=== PATIENT | male | born 1955 | race Caucasian/White ===

== ENCOUNTER → 2016-12-14 | Outpatient (CLI) | payer BC | END | disposition home or self-care (01) | LOC: C.LABSPEC 14:27 | PROVIDERS: ATTEND Family Medicine | DX: N39.0 Urinary tract infection, site not specified (principal) ==

== ENCOUNTER → 2017-01-13 | Outpatient (CLI) | payer BC ==
--- NOTE | 2017-01-13 09:45 | DIAGNOSTIC IMAGING REPORT ---
(TESTICULAR) SCROTUM-CONT CLINICAL HISTORY: TESTICULAR PAIN COMPARISON STUDY: No previous studies for comparison. FINDINGS: The right testis measures 41 x 29 x 23 mm. The left testis measures 41 x 29 x 24 mm. There is a 5 mm relatively anechoic focus within the upper pole the left testis. This likely represents a cyst. A 6 month follow-up study is recommended. There is no evidence of testicular torsion. There is a 15 mm left-sided epididymal cyst. There is a small left-sided hydrocele. There is a 4 mm left-sided scrotolith IMPRESSION: 1. No evidence of testicular torsion 2. 15 mm left-sided epididymal cyst 3. 4 mm left-sided scrotolith 4. 5 mm left-sided intratesticular mass, likely representing a cyst. A 6 month follow-up is recommended 5. Small left-sided hydrocele Electronically signed by: Jerome Deng M.D. 01/13/2017 9:43 AM Dictated Date/Time: 01/13/2017 9:40 AM
== END | disposition home or self-care (01) ==
LOC: C.ULTRBC 08:37
PROVIDERS: ATTEND Family Medicine
DX: N50.819 Testicular pain, unspecified (principal); N50.3 Cyst of epididymis; N43.3 Hydrocele, unspecified

== ENCOUNTER → 2017-12-25 | Outpatient (CLI) | payer OTHER ==
[~2017-12-25] MED LIST: MULT-506 PO; OXYC-57 PO
--- NOTE | 2017-12-25 13:57 | DIAGNOSTIC IMAGING REPORT ---
CHEST 2 VIEWS ROUTINE CLINICAL HISTORY: 62 years-old Male presenting with K40.90 Inguinal hernia, right Pre-op. TECHNIQUE: PA and lateral views of the chest were obtained. COMPARISON: 01/12/2009. FINDINGS: Cardiomediastinal silhouette normal. Lungs and pleural spaces clear. Osseous structures normal. Upper abdomen normal. IMPRESSION: 1. No acute cardiopulmonary disease. Electronically signed by: Javier Hagan M.D. 12/25/2017 1:55 PM Dictated Date/Time: 12/25/2017 1:54 PM
[2017-12-25 14:38] LABS: BASO % 0.6 %; BASO ABS # 0.04 K/uL (0-0.2); EOS % 1.1 %; EOS ABS # 0.08 K/uL (0-0.5); HEMATOCRIT 44.4 % (42-52); HEMOGLOBIN 15.1 g/dL (14.0-18.0); IG# 0.01 K/uL (0.00-0.02); LYMPH % 27.8 %; LYMPH ABS # 2.01 K/uL (1.2-3.4); MEAN CELL VOLUME 92.5 fL (80-100); MEAN CORPUSCULAR HEMOGLOBIN 31.5 pg (25-34); MEAN PLATELET VOLUME 10.2 fL (7.4-10.4); MONO % 6.1 %; MONO ABS # 0.44 K/uL (0.11-0.59); NEUT % 64.3 %; NEUT ABS # 4.65 K/uL (1.4-6.5); PLATELET COUNT 228 K/uL (130-400); RED CELL DISTRIBUTION WIDTH CV 12.4 % (11.5-14.5); RED CELL DISTRIBUTION WIDTH SD 42.1 fL (36.4-46.3); WHITE BLOOD COUNT 7.23 K/uL (4.8-10.8)
[2017-12-25 15:23] LABS: BLOOD UREA NITROGEN 18 mg/dl (7-18); CALCIUM 9.3 mg/dl (8.5-10.1); CARBON DIOXIDE 28 mmol/L (21-32); GLUCOSE 96 mg/dl (70-99); POTASSIUM 3.7 mmol/L (3.5-5.1); SODIUM 140 mmol/L (136-145)
== END | disposition home or self-care (01) ==
LOC: C.RAD 13:08
PROVIDERS: ATTEND Surgery
DX: K40.90 Unilateral inguinal hernia, without obstruction or gangrene, not specified as recurrent (principal)

== ENCOUNTER 2017-12-28 04:56 | Day surgery (SDC) | payer OTHER ==
[2017-12-26 14:40] VITALS: BMI 29.0
[~2017-12-28] VITALS: Ht 182.9 cm; Wt 96.4 kg
[~2017-12-28 04:56] MED LIST changes: -OXYC-57 PO
[2017-12-28 05:25] VITALS: BP 166/83; PULSE 72; TEMP 36.6; O2SAT 97; Ht 182.9 cm; Wt 96.4 kg
[2017-12-28] MEDS ORDERED: LACTATED RINGER'S 1000ML 1,000 ML IV SCH (06:00)
--- NOTE | 2017-12-28 06:19 | History & Physical Bridge Note ---
H&P Re-Evaluation Bridge Note: I have examined the patient, reviewed the History & Physical and in the interval since the performance of the History & Physical I have noted the following changes of clinical significance: No changes noted pt marked, to be here later all questions answered
[2017-12-28] MEDS ORDERED: BACITRACIN 50000 UNIT VIAL ONE (06:39)
[2017-12-28] MEDS ORDERED: BUPIVACAINE 0.5 % 5 MG/1 ML MPF 30ML VIAL ONE (06:39)
[2017-12-28] MEDS ORDERED: FENTANYL CITRATE INJ 50 MCG/1 ML 2 ML VIAL ONE ×2 (06:42→07:12)
[2017-12-28] MEDS ORDERED: ONDANSETRON INJ 2 MG/ML 2 ML VIAL ONE (06:42)
[2017-12-28] MEDS ORDERED: DEXAMETHASONE SOD INJ 4 MG/ML VIAL ONE (06:42)
[2017-12-28] MEDS ORDERED: LIDOCAINE HCL 2% 2 ML VIAL (20MG/ML) ONE (06:42)
[2017-12-28] MEDS ORDERED: PROPOFOL IV EMULSION 10 MG/ML 20 ML VIAL IV ONE ×2 (06:42→07:21)
[2017-12-28] MEDS ORDERED: MIDAZOLAM HCL 1 MG/ML 2ML VIAL ONE (06:42)
[2017-12-28] MEDS ORDERED: CEFAZOLIN SOD 1 GM VIAL ONE (07:04)
[2017-12-28] MEDS ORDERED: KETOROLAC TROMETHAMINE 30 MG/ML VIAL ONE (07:59)
--- NOTE | 2017-12-28 08:10 | [facility] Post Operative Brief Note ---
Immediate Operative Summary Operative Date Dec 28, 2017. Pre-Operative Diagnosis Right inguinal hernia Post-Operative Diagnosis RIGHT DIRECT HERNIA AND LIPOMA CORD Procedure(s) Performed OPEN RIGHT DIRECT ING HERNIA REPAIR WITH MARLEX MESH Surgeon Dr Alvarado Brake Repairer Surgeon(s) Molly Baker PA-C Estimated Blood Loss 3CC Findings See Below PREOP Specimens NONE
[2017-12-28] MEDS ORDERED: FENTANYL CITRATE INJ 50 MCG/1 ML 2 ML VIAL IV PRN (08:15)
[2017-12-28] MEDS ORDERED: HYDROmorphone INJ 1 MG/ML SYR IV PRN (08:15)
[2017-12-28] MEDS ORDERED: MEPERIDINE HCL 25 MG/ML CARP IV PRN (08:15)
[2017-12-28] MEDS ORDERED: ONDANSETRON INJ 2 MG/ML 2 ML VIAL IV PRN ×2 (08:15→08:30)
[2017-12-28] MEDS ORDERED: LABETALOL HCL IV 5 MG/ML 20ML IV PRN (08:15)
[2017-12-28] MEDS ORDERED: ATROPINE SULFATE 0.1 MG/ML 5ML SYR IV PRN (08:15)
[2017-12-28] MEDS ORDERED: EpHEDrine SULFATE INJ 50 MG/ML AMP IV PRN (08:15)
[2017-12-28] MEDS ORDERED: SODIUM CHLORIDE 0.9% 1000ML 1,000 ML IV SCH (08:21)
[2017-12-28] MEDS ORDERED: OXYC-57 PO (08:22)
--- NOTE | 2017-12-28 08:28 | Discharge Instructions ---
Discharge Instructions Date of Service Dec 28, 2017. Admission Reason for Admission: Right Inguinal Hernia Discharge Discharge Diagnosis / Problem: Right Inguinal Hernia Discharge Goals Goal(s): Decrease discomfort, Improve function Activity Recommendations Activity Limitations: as noted below Lifting Limitations: no more than 10 pounds Exercise/Sports Limitations: until after follow-up appointment May Resume Sexual Activity: after follow-up appointment Shower/Bathe: tomorrow Driving or Machine Use: resume 3 days after discharge . Instructions / Follow-Up Instructions / Follow-Up Please follow-up with Dr. Alvarado in the General Surgery Clinic in 1-2 weeks. Please call the office at [phone] to make an appointment if you do not have one already. Please call the office with any questions or concerns. Current Hospital Diet Patient's current hospital diet: Discharge Diet Recommended Diet: Regular Diet Procedures Procedures Performed: OPEN RIGHT DIRECT ING HERNIA REPAIR WITH MARLEX MESH Pending Studies Studies pending at discharge: no Medical Emergencies . Who to Call and When: Medical Emergencies: If at any time you feel your situation is an emergency, please call 911 immediately. . Non-Emergent Contact Non-Emergency issues call your: Primary Care Provider, Surgeon Call Non-Emergent contact if: temperature is above 101.5, your pain is not controlled, wound has increased drainage, wound has increased redness . "Provider Documentation" section prepared by Molly Baker. . [place] Drug Monitoring Program Search Results: patient reviewed within database, no issues identified
[2017-12-28] MEDS ORDERED: OXYCODONE/ACETAMINOPHEN 5-325 TAB PO PRN ×2 (08:30)
--- NOTE | 2017-12-28 09:04 | OPERATIVE REPORT ---
DATE OF OPERATION: 12/28/2017 SURGEON: Matthew Alvarado MD. TELEVISION MAINTENANCE WORKER: Molly Baker PA-C. PREOPERATIVE DIAGNOSIS: Right inguinal hernia. POSTOPERATIVE DIAGNOSIS: Right direct inguinal hernia and lipoma of the cord. PROCEDURE: Open right direct inguinal hernia repair with Marlex mesh reinforcement. SUMMARY: The patient was brought into the operating room theater. Under general anesthetic, the right lower quadrant prepped with Betadine scrubbing solution and properly draped. We used 0.5% Marcaine without epinephrine to infiltrate 2 fingers medial to the anterior superior iliac crest subfascially external oblique. An incision was made parallel to the inguinal ligament, deepened through subcutaneous tissue onto the external oblique. Some larger venous plexus for and subQ were ligated with 2-0 silk. We took down to the external oblique fascia where we exposed the external ring. More local was used underneath the external oblique and incised. Hemostats were used to elevate, the fascia was opened to the external ring. The nerve identified and avoided, placed underneath hemostats and retracted inferiorly. The cord and its structures were then elevated over a [place] drain, was identified. The patient had a direct hernia that we were able then to free up from the cord structure and also patient and a large lipoma coming down into the internal ring area. We did not resect this, I was able to reduce that all into the retroperitoneal area. We then closed the internal ring with 3-0 interrupted silk sutures. We also similarly closed some of the transversalis fascia onto the direct area to get it out of the way with 3-0 silk suture. A piece of Marlex was brought into the field and sutured onto the symphysis pubis, shelving portion of inguinal ligament above the conjoined tendon all the way beyond the internal ring which was reconstructed, could only accommodate the tip of a hemostat. The fascia was then checked for hemostasis. The nerve had been placed along the cord prior to closing the internal ring. The more local was used on the conjoined tendon with 0.5% Marcaine. The external oblique was closed on top of the cord and the mesh with 3-0 interrupted silk suture, 2-0 Dexon, pooja for skin edges. Dressing was applied. The procedure was tolerated well by the patient. Estimated blood loss approximately 3 mL. The patient was taken to recovery room in good condition. I attest to the content of the Intraoperative Record and any orders documented therein. Any exception s are noted below.
[2017-12-28 09:10] VITALS: BP 121/69; PULSE 60; TEMP 36.4; O2SAT 93
--- NOTE | 2017-12-28 09:19 | Anesthesiology Progress Note ---
Anesthesia Post Op Note Date & Time Dec 28, 2017 at 09:19 Vital Signs Pain Intensity: 4 Vital Signs Past 12 Hours Date Time Temp Pulse Resp B/P (MAP) Pulse Ox O2 Delivery O2 Flow Rate FiO2 12/28/17 09:00 36.4 60 12 138/89 93 Room Air 12/28/17 08:50 69 14 122/82 92 Room Air 12/28/17 08:40 76 15 118/70 96 Oxymask 10 12/28/17 08:30 81 20 123/70 94 Oxymask 10 12/28/17 08:21 36.2 72 18 115/68 94 Oxymask 10 12/28/17 05:25 36.6 72 18 166/83 (110) 97 Room Air Notes Mental Status: alert / awake / arousable, participated in evaluation Pt Amnestic to Procedure: Yes Nausea / Vomiting: adequately controlled Pain: adequately controlled Airway Patency, RR, SpO2: stable & adequate BP & HR: stable & adequate Hydration State: stable & adequate Anesthetic Complications: no major complications apparent
[2017-12-28 09:40] VITALS: BP 121/71; PULSE 55; TEMP 36.4; O2SAT 93
[2017-12-28 10:25] VITALS: BP 147/89; PULSE 54; TEMP 36.3; O2SAT 94
== END 2017-12-28 10:27 | disposition home or self-care (01) ==
LOC: C.ACU 04:56
PROVIDERS: ATTEND Surgery
DX: K40.90 Unilateral inguinal hernia, without obstruction or gangrene, not specified as recurrent (principal); D17.6 Benign lipomatous neoplasm of spermatic cord; Z90.89 Acquired absence of other organs; Z88.2 Allergy status to sulfonamides; Z80.1 Family history of malignant neoplasm of trachea, bronchus and lung

== ENCOUNTER → 2018-01-24 | Outpatient (CLI) | payer OTHER | END | disposition home or self-care (01) | LOC: C.LABSPEC 14:20 | PROVIDERS: ATTEND Family Medicine | DX: N39.0 Urinary tract infection, site not specified (principal) ==